=== PATIENT | female | born 1975 | race Caucasian/White ===

== ENCOUNTER 2018-08-17 07:17 | Emergency (ER) | payer BC ==
[2018-08-17 07:30] VITALS: BP 112/82
--- NOTE | 2018-08-17 07:52 | UC ---
Throat Pain/Nasal Vinh HPI - HPI Summary HPI Summary: 43-year-old woman comes to clinic today with a chief complaint of runny nose sore throat cough chest congestion. Been going on for about 7 days. She has asthma and it's making her breathing worse. She is not tried her albuterol inhaler. Swallowing makes the throat pain worse. No recent fevers. No ear pain. Been using guaifenesin [id number] and that does help bring up the sputum. Her sputum today had some blood in it. Was her rhinorrhea and sputum have been yellow and green in color. - History of Current Complaint Chief Complaint: UCRespiratory Stated Complaint: COUGH Time Seen by Provider: 08/17/18 07:23 Hx Last Menstrual Period: 07/20/18 Pain Intensity: 0 - Allergies/Home Medications Allergies/Adverse Reactions: Allergies Allergy/AdvReac Type Severity Reaction Status Date / Time No Known Allergies Allergy Verified 08/17/18 07:29 Home Medications: Home Medications Levothyroxine TAB* [Synthroid 137 MCG TAB*] 125 mcg PO 0800 08/17/18 [History Confirmed 08/17/18] Multivitamins/Minerals TAB* [Theragran/minerals TAB*] 1 tab PO DAILY 08/17/18 [ History Confirmed 08/17/18] guaiFENesin [Mucinex] 600 mg PO BID PRN 08/17/18 [History Confirmed 08/17/18] PMH/Surg Hx/FS Hx/Imm Hx Previously Healthy: Yes Endocrine History: Hypothyroidism Respiratory History: Asthma - Surgical History Surgical History: Yes Surgery Procedure, Year, and Place: cholecystectomy - Family History Known Family History: Positive: Hypertension, Diabetes - Social History Alcohol Use: Occasionally Substance Use Type: None Smoking Status (MU): Never Smoked Tobacco Have You Smoked in the Last Year: No - Immunization History Most Recent Influenza Vaccination: 06/20/15 Most Recent Tetanus Shot: 08/26/15 Most Recent Pneumonia Vaccination: never Review of Systems All Other Systems Reviewed And Are Negative: Yes Constitutional: Positive: Negative Skin: Positive: Negative Eyes: Positive: Negative ENT: Positive: Sore Throat, Nasal Discharge, Sinus Congestion Respiratory: Positive: Shortness Of Breath, Cough Cardiovascular: Positive: Negative Gastrointestinal: Positive: Negative Motor: Positive: Negative Neurovascular: Positive: Negative Musculoskeletal: Positive: Negative Neurological: Positive: Negative Psychological: Positive: Negative Is Patient Immunocompromised?: No Physical Exam Triage Information Reviewed: Yes Appearance: No Pain Distress, Well-Nourished, Ill-Appearing - MILD Vital Signs: Initial Vital Signs Temp 97.8 F 08/17/18 07:24 Pulse 80 08/17/18 07:24 Resp 16 08/17/18 07:24 BP 112/82 08/17/18 07:24 Pulse Ox 94 08/17/18 07:24 Vital Signs Reviewed: Yes Eye Exam: Normal Eyes: Positive: Conjunctiva Clear ENT: Positive: Pharyngeal erythema, Nasal congestion, Nasal drainage, TMs normal Neck exam: Normal Neck: Positive: Supple Respiratory: Positive: No respiratory distress, Rhonchi Cardiovascular: Positive: RRR Musculoskeletal Exam: Normal Musculoskeletal: Positive: Strength Intact, ROM Intact Neurological Exam: Normal Neurological: Positive: Alert, Muscle Tone Normal Psychological Exam: Normal Psychological: Positive: Age Appropriate Behavior Skin Exam: Normal Throat Pain/Nasal Course/Dx - Course Course Of Treatment: DISCUSSED VIRAL VERSES BACTERIAL INFECTION AND THE ROLE OF ANTIBIOTICS. THE PATIENT WISHES TO BE ON ANTIBIOTIC AT THIS TIME. - Differential Dx/Diagnosis Provider Diagnosis: Bronchitis, Asthma Discharge - Sign-Out/Discharge Documenting (check all that apply): Patient Departure All imaging exams completed and their final reports reviewed: No Studies - Discharge Plan Condition: Stable Disposition: HOME Prescriptions: Albuterol HFA INHALER* [Ventolin HFA Inhaler*] 2 puff INH Q4H PRN #1 mdi PRN Reason: Wheezing Azithromyxin ZEE (NF) [Z-Zee (Zithromax) 250 mg tabs #6] 2 tab PO .TODAY, THEN 1 DAILY #6 tab Patient Education Materials: Asthma (ED), Acute Bronchitis (ED) Referrals: Solange Lassiter MD [Primary Care Provider] - Additional Instructions: FOLLOW UP WITH YOUR DOCTOR IF NOT COMPLETELY IMPROVED. GET RECHECKED FOR ANY WORSENING OF YOUR CONDITION OR QUESTIONS OR CONCERNS. - Billing Disposition and Condition Condition: STABLE Disposition: Home
== END 2018-08-17 07:55 | disposition home or self-care (01) ==
LOC: UCEAST 07:17
DX: J45.909 Unspecified asthma, uncomplicated (principal)
CPT/HCPCS: 99212; G0463

== ENCOUNTER 2018-11-11 07:41 | Emergency (ER) | payer BC ==
[2018-11-11 07:55] VITALS: BP 119/87
--- NOTE | 2018-11-11 08:07 | UC ---
Head Injury HPI - HPI Summary HPI Summary: 43 y/o female presents to the urgent care c/o hitting her forehead w/ a Living room lamp yesterday around 1800pm. Pt reports she felt in a moment "everything went black", but denies LOC. She then developed a ARNOLD which radiated to the back of her head. She took a Tylenol PO 1000mg PO to alleviate symptoms. She has been feeling "fuzzy" and ARNOLD feels more pressure like on the RT side of head 5/ 10 associated w/ mild photosensitivity. Pt denies fever, N/V, SOB, chest pain, abdominal pain, neck pain. She ate dinner well last night and had been urinating well w/ normal BM. LMP;11/06/2018, last day of her period eas yesterday and declines test. - History Of Current Complaint Chief Complaint: UCHeadInjury Stated Complaint: POSS HEAD INJURY Time Seen by Provider: 11/11/18 08:06 Hx Obtained From: Patient Hx Last Menstrual Period: 11/06/18 ?: No - period until yesterday. Pt declines test Onset/Duration: Sudden Onset, Lasting Hours - 13hrs, Still Present Severity Currently: Moderate Severity Initially: Mild Pain Intensity: 5 - ARNOLD Pain Scale Used: 0-10 Numeric Character: Pressure Aggravating Factor(s): Other - light Associated Signs And Symptoms: Positive: Other - photosensitivity. Negative: LOC (Time In Secs./Mins/Hrs), LOC Duration Unknown, Confusion, Memory Loss, Seizure, Epistaxis, Dental Malocclusion, Neck Pain, Nausea, Vomiting - Risk Factors SDH Risk Factor: Negative - Allergies/Home Medications Allergies/Adverse Reactions: Allergies Allergy/AdvReac Type Severity Reaction Status Date / Time No Known Allergies Allergy Verified 11/11/18 07:55 PMH/Surg Hx/FS Hx/Imm Hx Previously Healthy: Yes Endocrine History: Hypothyroidism Respiratory History: Asthma - Surgical History Surgical History: Yes Surgery Procedure, Year, and Place: cholecystectomy - Family History Known Family History: Positive: Hypertension, Diabetes - Social History Occupation: Employed Full-time Lives: With Family Alcohol Use: Occasionally Substance Use Type: None Smoking Status (MU): Never Smoked Tobacco Have You Smoked in the Last Year: No - Immunization History Most Recent Influenza Vaccination: 06/20/15 Most Recent Tetanus Shot: 12/29/15 Most Recent Pneumonia Vaccination: never Review of Systems All Other Systems Reviewed And Are Negative: Yes Constitutional: Positive: Negative Skin: Positive: Negative Eyes: Positive: Photophobia - photosensitivity s/p hitting her head w/ a living room lamp ENT: Positive: Other - mild dizziness Respiratory: Positive: Negative Cardiovascular: Positive: Negative Gastrointestinal: Positive: Negative Genitourinary: Positive: Negative Motor: Positive: Negative Neurovascular: Positive: Negative Musculoskeletal: Positive: Negative Neurological: Positive: Headache Psychological: Positive: Negative Is Patient Immunocompromised?: No Physical Exam - Summary Physical Exam Summary: Vital signs: reviewed General: wel developed, well nourished obese female awake and alert in no distress; no odor of ETOH. Skin: [place], warm and dry, no surface trauma. HEENT: -Head: atraumatic, no palpable deformities, -Eyes: PERRLA and EOMI, no periorbital ecchymosis. -Ears: TMs clear, no hemotympanum or Battles sign. -Nose/Face: atraumatic, no septal hematoma. Facial bones symmetric, NT to palpation and stable with attempt at manipulation. -Mouth/Throat: no intraoral trauma, Teeth and mandible are intact. Neck: no point tenderness, step-off or deformity to firm palpation of the cervical spine at the midline. No spasm or paraspinal muscle tenderness. Trachea midline. Carotids equal. No masses. FROM without limitation or pain. Chest: no surface trauma or asymmetry. NT without crepitus or deformity. Normal tidal volume. CTA bilaterally. Oxygen saturation greater than 95% on room air. Heart: RRR, no murmur, rub, or gallop. All peripheral pulses are intact and equal. Abd: nondistended without abrasions or ecchymosis. Bowel sounds are active. NT , guarding or rebound. No masses. Good femoral pulses. Back: no contusions, ecchymosis, or abrasions are noted, NT, without step-off or deformity to firm palpation of the thoracic and lumbar spine. Pelvis: NT to palpation and stable to compression. Extrems: no surface trauma. FROM. Distal motor, neuromuscular supply is intact. Neuro: A&O x4, GCS 15, CN II-XII grossly intact. Motor and sensory exam nonfocal. Reflexes are symmetric. Speech is clear and gait steady. Pt can count backwards w/o any difficulty and memory is intact Triage Information Reviewed: Yes Vital Signs: Initial Vital Signs Temp 97.0 F 11/11/18 07:51 Pulse 79 11/11/18 07:51 Resp 16 11/11/18 07:51 BP 119/87 11/11/18 07:51 Pulse Ox 100 11/11/18 07:51 Head Injury Course/Dx - Course Course Of Treatment: 43 y/o female presents to the urgent care c/o hitting her forehead w/ a Living room lamp yesterday around 1800pm. Pt reports she felt in a moment "everything went black", but denies LOC. She then developed a ARNOLD which radiated to the back of her head. She took a Tylenol PO 1000mg PO to alleviate symptoms. She has been feeling "fuzzy" and ARNOLD feels more pressure like on the RT side of head 5/ 10 associated w/ mild photosensitivity. Pt denies fever, N/V, SOB, chest pain, abdominal pain, neck pain. She ate dinner well last night and had been urinating well w/ normal BM. LMP;11/06/2018, last day of her period eas yesterday and declines test. Hx obtained. PE: WNL,A&O x4, GCS 15, CN II-XII grossly intact. Motor and sensory exam nonfocal. Reflexes are symmetric. Speech is clear and gait steady. no AMS or hematoma observed on exam. Neurologic exam is WNL. At this momment Pt has photosensitivity and ARNOLD. Brain CT ordered, Impression: No acute intracranial abnormality as pr radiologist. Pt explained Ct results. Pt given at the clinic Tylenol PO by the nurse. Pt tolerated well medication andPt felt better. Pt w/ possible Head concussion. Pt advised close observation and brain rest as directed below. She was recommended to f/u w/ his PCP if mild ARNOLD, and photosensitivity persist for further evaluation and treatment. D/C instructions explained. Pt understood and agreed w/ plan of care. Pt left clinic hemodynamically stable, ambulating and A& OX4 - Differential Dx/Diagnosis Differential Diagnosis/HQI/PQRI: Cerebral Contusion, Cervical Sprain, Concussion Without LOC, Contusion, Hematoma, Intracranial Bleed Provider Diagnosis: Head concussion, Headache Discharge - Sign-Out/Discharge Documenting (check all that apply): Patient Departure - d/c home All imaging exams completed and their final reports reviewed: Yes - Discharge Plan Condition: Stable Disposition: HOME Patient Education Materials: Concussion (ED) Referrals: Solange Lassiter MD [Primary Care Provider] - 3 Days Additional Instructions: 1-Please take ibuprofen PO q6-8hrs prn as instructed after meals to alleviate pain and Headache. Increase fluid intake, eat well, rest and avoid strenuous exercise. If Headache returns please take Tylenol PO and Benadryl PO q6hrs instead. 2-If symptoms worsen and you develop vomiting w/ severe ARNOLD please go immediately to the ER for further management 3- Rest your brain, avoid watching videos or movies or work in the computer for long period or time. If ARNOLD continue to be mild please f/u w/ your PCP in 3 days for further management - Billing Disposition and Condition Condition: STABLE Disposition: Home
[2018-11-11] MEDS ORDERED: Acetaminophen TAB* 325 MG PO ONE (08:32)
== END 2018-11-11 09:05 | disposition home or self-care (01) ==
LOC: UCEAST 07:41
DX: S06.0X0A Concussion without loss of consciousness, initial encounter (principal); R51 Headache; J45.909 Unspecified asthma, uncomplicated; W22.8XXA Striking against or struck by other objects, initial encounter; Y92.9 Unspecified place or not applicable
CPT/HCPCS: 70450; 99212; A9270-GY; G0463